=== PATIENT | male | born 1980 | race Caucasian/White ===

== ENCOUNTER 2018-05-12 20:00 | Emergency (ER) | payer BC ==
[2018-05-12 21:42] LABS: microscopic required? NO
[2018-05-12 21:57] LABS: urine erythrocyte NEGATIVE (NEGATIVE)
[2018-05-12 22:53] VITALS: BP 130/75
== END 2018-05-12 22:03 | disposition home or self-care (01) ==
LOC: ED 20:00
PROVIDERS: Emergency Medicine
DX: N50.3 Cyst of epididymis (principal)
CPT/HCPCS: J1885; Q0092